=== PATIENT | female | born 1990 | race Caucasian/White ===

== ENCOUNTER 2020-10-06 16:35 | Outpatient (REF) | payer MEDICAID, SELFPAY | END 2020-10-06 16:36 | disposition home or self-care (01) | LOC: HO.LAB 16:35 | PROVIDERS: Visit Provider Internal Medicine | DX: Z20.828 Contact with and (suspected) exposure to other viral communicable diseases (principal) | CPT/HCPCS: C9803; U0003 ==

== ENCOUNTER 2020-11-19 15:33 | Outpatient (REF) | payer MEDICAID, SELFPAY ==
[2020-11-19 17:47] LABS: MANUAL DIFF FLAG NO
[2020-11-19 17:52] LABS: Basophils Percent Auto 0.5 % (0-2); Eosinophils Absolute Auto 0.2 X10*3/uL (0.0-0.4); Eosinophils Percent Auto 2.5 % (0-4); Hematocrit 39.2 % (37-47); Hemoglobin 12.6 g/dl (12.0-16.0); Imm Gran Abs Auto 0.01 X10*3/uL (0.00-0.03); Imm Gran Pct Auto 0.1 % (0.0-0.4); Lymphocytes Absolute Auto 2.2 X10*3/uL (1.2-4.9); Lymphocytes Percent Auto 25.8 % (20-40); Mean Corpuscular HGB Conc 32.1 g/dl (31.0-35.0); Mean Corpuscular Hemoglobin 28.6 pg (27.0-33.0); Mean Corpuscular Volume 88.9 fL (80-98); Mean Platelet Volume 9.8 fL (9.4-12.3); Monocytes Absolute Auto 0.8 X10*3/uL (0.1-1.2); Monocytes Percent Auto 9.5 % (2-11); Neutrophils Absolute Auto 5.2 X10*3/uL (2.0-8.3); Neutrophils Percent Auto 61.6 % (45-73); Platelet Count 398 X10*3/uL (160-400); Red Blood Count 4.41 X10*6/uL (4.20-5.50); Red Cell Distribution Width 12.4 % (11.0-16.0); White Blood Count 8.5 X10*3/uL (4.8-10.8)
[2020-11-19 18:16] LABS: Alanine Aminotransferase 7 U/L (0-31); Albumin Level 4.4 g/dL (3.5-5.0); Alkaline Phosphatase 65 U/L (39-117); Anion Gap 13 (12-20); Aspartate Amino Transferase 12 U/L (5-31); Bilirubin Total 0.6 mg/dL (0.0-1.0); Blood Urea Nitrogen 8 mg/dL (9-16); Calcium 9.2 mg/dL (8.4-10.2); Carbon Dioxide 26 mmol/L (22-29); Chloride 103 mmol/L (96-108); Estimated Glomerular Filt Rate > 60; Glucose Random 92 mg/dL (60-115); Lipase 19 U/L (8-78); Potassium 3.8 mmol/L (3.3-5.1); Sodium 138 mmol/L (135-145); Total Protein 7.1 g/dL (6.5-8.0)
== END 2020-11-19 15:34 | disposition home or self-care (01) ==
LOC: HO.MANLDS 15:33
PROVIDERS: PCP Internal Medicine; Visit Provider Internal Medicine
DX: R11.2 Nausea with vomiting, unspecified (principal)
CPT/HCPCS: 36415; 80053; 83690; 83735; 85025

== ENCOUNTER → 2020-12-18 13:16 | Outpatient (BNVA) | payer MEDICAID, SELFPAY | PROVIDERS: PCP Internal Medicine; Visit Provider Physician Assistant | DX: R10.9 Unspecified abdominal pain (principal); K92.0 Hematemesis; E66.3 Overweight; Z68.29 Body mass index [BMI] 29.0-29.9, adult; Z90.3 Acquired absence of stomach [part of]; Z71.3 Dietary counseling and surveillance; Z79.899 Other long term (current) drug therapy | CPT/HCPCS: 99202 ==

== ENCOUNTER 2020-12-24 07:36 | Day surgery (SDC) | payer MEDICAID, SELFPAY ==
--- NOTE | 2020-12-23 12:15 | HO.ANESPROP2 ---
Documented by User: Shana Greer 12/23/20 12:17 HPI - Anesthesia Eval Consult details Narrative: 30yo F for Upper Endoscopy s/p gastric sleeve 2015 s/p uvulectomy PMFSH Active Problems Active Problems: All Active Problems (Updated 12/18/20 @ 15:04 by Lyly Whitmore PA-C) Abdominal pain (Acute) Anxiety (Acute) ADHD (Acute) Overweight (Acute) Past Medical History Medical History ADHD Anxiety Bloody emesis Obesity Family History Family History Mother No problems noted. Father No problems noted. Sister No problems noted. Son Premature baby Daughter No problems noted. Daughter Sezary disease Surgical History Surgical History H/O bilateral salpingectomy H/O uvulectomy History of sleeve gastrectomy Hx of section Hx of tonsillectomy Social History Social History (Updated 12/24/20 @ 08:28 by Jaylin Quintanilla) Alcohol intake: current Alcohol intake frequency: holidays/special occasions only Smoking Status: Never smoker Use of substances other than those prescribed or required for medical reasons: No Substance Use Type: Marijuana Last Used Substance: Weeks (ago) Have you been hit, kicked, punched, or otherwise hurt by someone within the past year? If so, by whom?: No Advance Directives: No Advance Directives Information Provided: Yes Meds Allergies Allergy/AdvReac Type Severity Reaction Status Date / Time sulfamethoxazole Allergy Severe SEIZURE Verified 12/24/20 08:22 [From BACTRIM] trimethoprim [From BACTRIM] Allergy Severe SEIZURE Verified 12/24/20 08:22 From BENADRYL Allergy Severe SEIZURE Uncoded 12/24/20 08:22 Home Medications Medication Instructions Recorded Confirmed Last Taken Type dextroamphetamine-amphetamine 20 20 mg PO DAILY 12/18/20 12/18/20 Unknown History mg tablet hydroxyzine HCl 25 mg tablet 25 mg PO BEDTIME 12/18/20 12/18/20 Unknown History sertraline 50 mg tablet 50 mg PO DAILY 12/18/20 12/18/20 Unknown History tramadol 50 mg tablet 50 mg PO TID PRN 12/18/20 12/18/20 Unknown History zolpidem 10 mg tablet 10 mg PO BEDTIME PRN 12/18/20 12/18/20 Unknown History Exam Exam Date and Time: December 23, 2020 1215 Assessment and Plan Assessment Anesthesia Assessment: Chart Reviewed Documented by User: Jaylin Quintanilla 12/24/20 08:34 PMFSH Past Medical History Medical History ADHD Anxiety Bloody emesis Obesity Family History Family History Mother No problems noted. Father No problems noted. Sister No problems noted. Son Premature baby Daughter No problems noted. Daughter Sezary disease Family history of problems with anesthesia: No Surgical History Surgical History H/O bilateral salpingectomy H/O uvulectomy History of sleeve gastrectomy Hx of section Hx of tonsillectomy History of Problems with Anesthesia: No Social History Social History (Updated 12/24/20 @ 08:28 by Jaylin Quintanilla) Alcohol intake: current Alcohol intake frequency: holidays/special occasions only Smoking Status: Never smoker Use of substances other than those prescribed or required for medical reasons: No Substance Use Type: Marijuana Last Used Substance: Weeks (ago) Have you been hit, kicked, punched, or otherwise hurt by someone within the past year? If so, by whom?: No Advance Directives: No Advance Directives Information Provided: Yes Meds Allergies Allergy/AdvReac Type Severity Reaction Status Date / Time sulfamethoxazole Allergy Severe SEIZURE Verified 12/24/20 08:22 [From BACTRIM] trimethoprim [From BACTRIM] Allergy Severe SEIZURE Verified 12/24/20 08:22 From BENADRYL Allergy Severe SEIZURE Uncoded 12/24/20 08:22 Home Medications Medication Instructions Recorded Confirmed Last Taken Type dextroamphetamine-amphetamine 20 20 mg PO DAILY 12/18/20 12/18/20 Unknown History mg tablet hydroxyzine HCl 25 mg tablet 25 mg PO BEDTIME 12/18/20 12/18/20 Unknown History sertraline 50 mg tablet 50 mg PO DAILY 12/18/20 12/18/20 Unknown History tramadol 50 mg tablet 50 mg PO TID PRN 12/18/20 12/18/20 Unknown History zolpidem 10 mg tablet 10 mg PO BEDTIME PRN 12/18/20 12/18/20 Unknown History Exam Height,Weight and Vital Signs: Vital Signs Temp Pulse Resp BP Pulse Ox 12/24/20 08:14 97.9 F 98 18 112/70 98 Pertinent Lab Results Pertinent Lab Results: Laboratory Results - last 24 hr 12/24/20 07:59 COVID-19 ([facility]) Negative COVID-19 Clin Com See Note Assessment and Plan Assessment Anesthesia Assessment: Anesthesia Plan Discussed and Chart Reviewed Final Anesthetic Review NPO: Yes ASA Class: II Final Preanesthetic Review: No Changes in Pt Med Stat, Meds/Allgs Chart Reviewed, Consent Obtained/Reviewed and Anes Risks/Benef Reviewed Patient Risk: Low Procedure Risk: Low Assessment/Block/Sedation in SS: Assess/Block/Sedation-SS Anesthetic Plan Anesthetic Plan: MAC: Disposition: Standard PACU
--- NOTE | 2020-12-23 17:11 | MHC.SHP ---
Pre-Procedural Eval Section B Chief Complaint: abdominal pain Allergies: Allergies Allergy/AdvReac Type Severity Reaction Status Date / Time sulfamethoxazole Allergy Severe SEIZURE Verified 12/18/20 13:53 [From BACTRIM] trimethoprim [From BACTRIM] Allergy Severe SEIZURE Verified 12/18/20 13:53 From BENADRYL Allergy Severe SEIZURE Uncoded 07/03/20 18:06 Plan I have reviewed the history and physical and performed a pertinent physical examination on my patient. No changes have occurred unless specified.
[2020-12-24 08:14] VITALS: BP 112/70; PULSE 98; RESP 18; TEMP 36.6; O2SAT 98
[2020-12-24 08:19] VITALS: BMI 28.3
[2020-12-24 08:23] LABS: COVID-19 Test Negative (Negative); IDNOW Serial# 9DD0AD1C
[2020-12-24] MEDS: Lactated Ringers 1,000 ML 100 ML IVCONT (08:42)
--- NOTE | 2020-12-24 09:07 | PM.OP ---
Brief Operative Note Date of Service: 12/24/20 Pre-op diagnosis: Vomiting after gastric sleeve Post-op diagnosis: other (2 cm sliding hiatal hernia and antral gastritis) Procedure: Esophagogastroduodenoscopy and antral biopsy x2 Implants: None Surgeon: Jennifer Roland MD Anesthesia: MAC Estimated blood loss (mL): 0 Pathology: other (Antral biopsy x2) Condition: stable Disposition: PACU
[2020-12-24 09:10] VITALS: BP 95/49; PULSE 88; RESP 16; TEMP 36.1; O2SAT 100
[2020-12-24 09:25] VITALS: BP 104/64; PULSE 80; RESP 16; O2SAT 100
--- NOTE | 2020-12-24 09:26 | OP_ITS ---
SURGEON: Jennifer Roland MD PREOPERATIVE DIAGNOSIS: POSTOPERATIVE DIAGNOSIS: PROCEDURE PERFORMED: 1. Esophagogastroduodenoscopy. 2. Antral biopsy x2. ESTIMATED BLOOD LOSS: COMPLICATIONS: None. ANESTHESIA: Total intravenous anesthesia with propofol given by the nurse registered nurse step down. ASSISTANTS: None. SPECIMENS: PREPROCEDURE DIAGNOSIS: Significant vomiting for the past 3 months with a history of gastric sleeve in the past. POSTPROCEDURE DIAGNOSES: 2 cm sliding hiatal hernia and antral gastritis. FINDINGS: A sliding hiatal hernia that was about 2 cm in length. The GE junction was located at 39 cm from the incisors. There was no evidence of torsion, stenosis, or other abnormalities on the gastric mucosa. The gastric sleeve appeared to be normal. There was some granularity and erythema at the antrum. DESCRIPTION OF PROCEDURE: The patient was brought to the operating room on the stretcher and placed in the left lateral decubitus position. A safety time-out was performed. A bite block was placed between the teeth. Total intravenous anesthesia was administered using propofol by the nurse registered nurse step down. Once the patient was adequately sedated, the gastroscope was placed in the posterior oropharynx, passed down the esophagus, evaluating esophageal mucosa, which was normal. There was a sliding hiatal hernia that was about 2 cm in length. The gastroscope was passed into the gastric pouch, which was normal. There were no abnormal mucosal lesions. There was no evidence of stenosis or torsion or stricture of the gastric sleeve. The gastroscope was easily passed to the antrum. There was some erythema and some granularity and antral gastritis, which was biopsied x2. Gastroscope was passed through the pylorus down to the 3rd portion of duodenum, all of which was normal. All these portions of the upper endoscopy were documented using photo documentation. The gastroscope was retracted back into the stomach. Stomach was desufflated. The gastroscope was removed without difficulty. The patient tolerated the procedure well and was sent to recovery room in stable condition. MD JONNA Colindres/MERLINL / [phone]
== END 2020-12-24 09:37 ==
LOC: HO.SSS 07:37
PROVIDERS: PCP Internal Medicine; Visit Provider Surgery
PROC: 0DJ08ZZ Inspection of Upper Intestinal Tract, Via Natural or Artificial Opening Endoscopic (ICD-10-PCS; CPT 43235; principal; 2020-12-24 08:40)
DX: K29.50 Unspecified chronic gastritis without bleeding (principal); K44.9 Diaphragmatic hernia without obstruction or gangrene; K92.0 Hematemesis; E66.3 Overweight; Z68.29 Body mass index [BMI] 29.0-29.9, adult; Z98.84 Bariatric surgery status; Z90.3 Acquired absence of stomach [part of]; Z88.2 Allergy status to sulfonamides; Z88.8 Allergy status to other drugs, medicaments and biological substances; Z79.899 Other long term (current) drug therapy
CPT/HCPCS: 43239; 36415; 87635; 88305; 88342

== ENCOUNTER 2021-01-06 13:36 | Outpatient (REF) | payer MEDICAID, SELFPAY ==
[2021-01-06 15:37] LABS: Iron 99 mcg/dL (30-160); Percent Iron Saturation 30 % (15-50); Total Iron Binding Capacity 335 mcg/dL (228-428); Unsaturated Iron Binding 236 ug/dL
[2021-01-06 16:05] LABS: Vitamin B12 256 pg/mL (200-900)
[2021-01-09 01:47] LABS: Zinc 66 mcg/dL (60-130)
[2021-01-09 23:02] LABS: Vitamin A 61 mcg/dL (38-98)
[2021-01-10 11:16] LABS: Vitamin B1 10 nmol/L (8-30)
== END 2021-01-06 13:37 | disposition home or self-care (01) ==
LOC: HO.LAB 13:36
PROVIDERS: PCP Internal Medicine; Visit Provider Surgery
DX: K91.2 Postsurgical malabsorption, not elsewhere classified (principal); K91.0 Vomiting following gastrointestinal surgery; Z90.3 Acquired absence of stomach [part of]
CPT/HCPCS: 36415; 82306; 82607; 83540; 84425; 84590; 84630; 99212

== ENCOUNTER → 2021-01-19 09:04 | Outpatient (BNVA) | payer MEDICAID, SELFPAY | PROVIDERS: PCP Internal Medicine; Visit Provider Physician Assistant | DX: R10.9 Unspecified abdominal pain (principal); R11.2 Nausea with vomiting, unspecified; G89.29 Other chronic pain | CPT/HCPCS: 99212 ==

== ENCOUNTER → 2021-02-09 10:15 | Outpatient (BNVA) | payer MEDICAID, SELFPAY | PROVIDERS: PCP Internal Medicine; Visit Provider Nurse Practitioner Family | DX: R10.12 Left upper quadrant pain (principal) | CPT/HCPCS: 99202 ==

== ENCOUNTER 2021-03-24 13:46 | Outpatient (REF) | payer MEDICAID, SELFPAY ==
--- NOTE | ~2021-03-24 | CT_ITS ---
EXAMINATION: CT ENTEROGRAPHY ABDOMEN AND PELVIS WITH CONTRAST CLINICAL INFORMATION: E61.1 - Iron deficiency. History gastric sleeve 6 years ago. COMPARISON: None TECHNIQUE: Study performed with oral VoLumen (1350 mL) and 480 mL of water to distend the abdomen. The patient was injected with 85 mL Omnipaque 350 intravenous contrast which was administered without adverse effect. Coronal and sagittal reformatted images were obtained at the technologist's workstation. This CT examination was performed using dose optimization techniques as appropriate, variously including the following: *Automated exposure control *Adjustment of mA and/or kV according to patient size (this includes techniques or standardized protocols for targeted exams where dose is matched to indication/reason for exam; i.e. extremities or head) *Use of iterative reconstruction technique DLP: 426 mGy-cm FINDINGS: LUNG BASES: The visualized lung bases are unremarkable. LIVER, GALLBLADDER, AND BILIARY TREE: The liver is normal in size and smooth in contour and homogeneous. Parenchymal attenuation is within limits of normal. No focal hepatic parenchymal lesion or intrahepatic ductal dilatation. The gallbladder is unremarkable with no evidence of radiopaque gallstones, gallbladder wall thickening, or obvious pericholecystic inflammatory changes. PANCREAS: Unremarkable. SPLEEN: Unremarkable. ADRENAL GLANDS: Unremarkable. KIDNEYS AND URETERS: The kidneys are normal in size, shape, and attenuation. No hydronephrosis, hydroureter, or calculi seen. No perinephric stranding. BLADDER: Unremarkable. GASTROINTESTINAL TRACT: Prior gastric sleeve surgery. There are no inflammatory changes in the bowel or mesentery. The appendix is normal. There is no focal bowel wall thickening or visible mass. No ascites or fluid collection. ABDOMINAL WALL: Tiny fat-containing umbilical hernia, 2 cm in length. LYMPH NODES: No lymphadenopathy. VASCULAR: Unremarkable. PELVIC VISCERA: Unremarkable. OSSEOUS STRUCTURES: Unremarkable. CT/CT enterography IMPRESSION: Prior gastric sleeve surgery. No obstruction, bowel wall thickening, or visible mass. .
[2021-03-24] MEDS: iohexoL 350 MG/ML 100 ML INFUS..BTL IV (15:48)
[2021-03-24] MEDS: Sorbitol/Mannit/Xanth Imaging 500 ML LIQUID 1000 ML PO (15:49)
== END 2021-03-24 13:47 | disposition home or self-care (01) ==
LOC: HO.US 13:46
PROVIDERS: PCP Internal Medicine; Visit Provider Physician Assistant
DX: E61.1 Iron deficiency (principal)
CPT/HCPCS: 74177; Q9967

== ENCOUNTER → 2024-01-18 15:22 | Outpatient (BNVA) | payer MEDICAID, SELFPAY | PROVIDERS: PCP Internal Medicine; Visit Provider Surgery ==